=== PATIENT | female | born 1955 | race Caucasian/White ===

== ENCOUNTER 2025-02-10 11:50 | Outpatient (CLI) | payer MEDICARE, MEDICAID ==
[~2025-02-10 11:50] MED LIST: ALBU6.7H14 IH; ATOR10TA70 PO; DULO20CA18 PO; LISI2.5T14 PO; OLAN10TA73 PO; PANT40TA54 PO; SEMA0.5P SQ
[2025-02-10 12:33] LABS: CREATININE 1.39 MG/DL (0.40-0.90); TOTAL CARBON DIOXIDE 22.8 MMOL/L (24-32); eGFR 37 ML/MIN
[2025-02-10] MEDS ORDERED: iohexol 300mg/ml 100ml inj. ONE (13:04)
--- NOTE | 2025-02-10 21:35 | RADIOLOGY REPORT ---
CLINICAL HISTORY: SHORTNESS OF BREATH TECHNIQUE: Chest CT was performed with 80 ml of isovue 370 administered intravenously. This exam was performed according to our departmental dose optimization program. Up-to-date CT equipment and radiation dose reduction techniques are utilized as appropriate. WID: COMPARISON: DI CHEST,SINGLE VIEW on DOS: 11/12/24 FINDINGS: Lower Neck: Unremarkable Axilla, Mediastinum and Lyla: Mild wall thickening of the lower esophagus. No thoracic lymphadenopathy. Heart and Great Vessels: Normal-sized heart with small pericardial effusion. The thoracic aorta is patent and normal caliber with mild mixed atherosclerotic plaque. At least mild 3-vessel calcified coronary artery disease. The central pulmonary arteries are patent. Airway, Lungs and Pleura: Trachea and central airways are patent. There is mild centrilobular emphysema. Tiny, sub 5 mm nodule along the left major fissure on series 5, image 32. No airspace consolidation, pleural effusion, or pneumothorax. Upper Abdomen: Cholelithiasis. No acute abnormality. Chest Wall and Osseous Structures: Exaggeration of the thoracic kyphosis. Multilevel thoracic spondylosis. No destructive osseous lesion. The patient is edentulous. IMPRESSION: 1. Mild emphysema. 2. Tiny, sub 5 mm nodule along the left major fissure, nonspecific. Recommend obtaining CT chest in 1 year for re-evaluation if clinically indicated. 3. At least mild 3-vessel calcified coronary artery disease. 4. Cholelithiasis. 5. Mild wall thickening of the lower esophagus which could reflect esophagitis.
== END 2025-02-10 23:59 | disposition home or self-care (01) ==
LOC: RAD 11:50
PROVIDERS: ATTEND Family Medicine
DX: J43.2 Centrilobular emphysema (principal); R06.02 Shortness of breath; R91.1 Solitary pulmonary nodule; K22.89 Other specified disease of esophagus; I70.0 Atherosclerosis of aorta; I25.10 Atherosclerotic heart disease of native coronary artery without angina pectoris; K80.20 Calculus of gallbladder without cholecystitis without obstruction; M40.294 Other kyphosis, thoracic region; M47.812 Spondylosis without myelopathy or radiculopathy, cervical region; Z79.899 Other long term (current) drug therapy
CPT/HCPCS: 36415; 71270; 80053; Q9967